=== PATIENT | male | born 1945 | race Caucasian/White ===

== ENCOUNTER → 2020-09-01 | Outpatient (CLI) | payer OTHER ==
--- NOTE | 2020-09-01 14:55 | RAD ---
EXAMINATION: NM PET/CT SKULL BASE TO MID THIGH CLINICAL HISTORY: Right lower lobe pulmonary mass TECHNIQUE: Approximately 60 minutes following the IV administration of F-18 FDG (15.97 mCi of F-18 FD G), PET and non contrast CT images were acquired from the skull base through th mid thighs. PET image s were reconstructed with and without attenuation correction using attenuation coefficients. CT image s obtained for attenuation correction and anatomic localization, they are not of diagnostic quality a nd are not intended to diagnose disease independently of the PET. - Blood Glucose: 83 mg/dL CT Dose Reduction Employed: One or more of the following individualized dose reduction techniques wer e utilized for this examination: 1. Automated exposure control 2. Adjustment of the mA and/or kV ac cording to patient size 3. Use of iterative reconstruction technique. COMPARISON: CT chest 08/23/2020 FINDINGS: NECK: No suspicious FDG avid focus or FDG avid lymphadenopathy visualized. CHEST: A 8.0 cm mass in the posterior right lower lobe demonstrates low level uptake with Max SUV 1.6. Multi ple prominent mediastinal lymph nodes, predominantly paratracheal, with mild uptake. For example, 7 m m node at station 4R demonstrating mild uptake with Max SUV 3.0 (series 603 image 59). 7 mm left alfonzo r lymph node demonstrating mild uptake with Max SUV 2.7 (series 603 image 63). Chronic changes in the chest similar to prior study. ABDOMEN/PELVIS: No FDG avid lymphadenopathy visualized. Enlarged prostate demonstrating low level uptake with Max SUV 2.1, nonspecific. Prostate densities mass effect and urinary bladder with mild diffuse bladder wall thickening, likely reactive. Right renal cyst with no associated uptake. EXTREMITIES/SKELETON: No suspicious FDG avid focus visualized. Diffuse low level uptake in the spine, nonspecific. Symmetri c uptake within strap muscles of the neck, nonspecific but likely related to increased muscle activit y following radiopharmaceutical administration. IMPRESSION: Nonspecific 8 cm pulmonary mass in the right lower lobe with low level FDG uptake, consider percutane ous biopsy for definitive diagnosis. Prominent mediastinal and left hilar lymph nodes with mild FDG uptake, nonspecific. Enlarged prostate. Electronically signed by: Simone Almendarez DO (09/01/2020 2:52 PM) [id number]
== END ==
LOC: PETSC 08:54
PROVIDERS: ATTEND Internal Medicine Pulmonary Disease
DX: R91.8 Other nonspecific abnormal finding of lung field (principal); R59.0 Localized enlarged lymph nodes; N40.0 Benign prostatic hyperplasia without lower urinary tract symptoms; N28.1 Cyst of kidney, acquired
CPT/HCPCS: 78815; A9552

== ENCOUNTER 2020-09-06 06:33 | Inpatient (IN) | payer OTHER ==
[~2020-09-06] VITALS: Ht 177.8 cm; Wt 56.4 kg
[2020-09-06] VITALS (17 sets, daily range): BP systolic 112–157; BP diastolic 54–87
[2020-09-06 07:44] LABS: BASO % 0 % (0-3); EOS # 0.4 x10^3/uL (0.0-0.7); EOS % 5 % (0-3); HEMATOCRIT 46.1 % (39.0-53.0); HEMOGLOBIN 15.4 g/dL (13.0-17.5); LYMPH # 1.5 x10^3/uL (1.0-4.8); LYMPH % 19 % (24-48); MEAN CORPUSCULAR HEMOGLOBIN 31 pg (25-35); MEAN CORPUSCULAR HGB CONC 33 g/dL (31-37); MEAN CORPUSCULAR VOLUME 92 fL (79-100); MONO # 0.6 x10^3/uL (0.0-1.1); MONO % 8 % (0-9); NEUT # 5.2 x10^3/uL (1.8-7.7); NEUT % 67 % (31-73); PLATELET COUNT 286 x10^3/uL (140-400); RED BLOOD COUNT 5.01 x10^6/uL (4.30-5.70); RED CELL DISTRIBUTION WIDTH 13.9 % (11.5-14.5); WHITE BLOOD COUNT 7.7 x10^3/uL (4.0-11.0)
[2020-09-06] MEDS ORDERED: PANT40TA77 PO (07:50)
[2020-09-06] MEDS ORDERED: FLUT1BLS3 IH (07:50)
[2020-09-06] MEDS ORDERED: ALBU2.5V8 IH (07:50)
[2020-09-06 07:53] LABS: CALCIUM 9.3 mg/dL (8.5-10.1); CREATININE 0.9 mg/dL (0.7-1.3); GFR 82.9; POTASSIUM 3.9 mmol/L (3.5-5.1)
[2020-09-06 07:54] LABS: PROTHROMBIN TIME PATIENT 12.7 SEC (11.7-14.0)
[2020-09-06] MEDS ORDERED: LIDOCAINE WITH 8.4% SOD BICARB 3 ML DISP.SYRIN. ONE (08:31)
[2020-09-06] MEDS ORDERED: fentaNYL PF VIAL 100 MCG/2 ML VIAL ONE (08:50)
[2020-09-06] MEDS ORDERED: MIDAZOLAM HCL/PF 2 MG/2 ML VIAL. ONE (08:50)
[2020-09-06] MEDS ORDERED: MIDAZOLAM HCL/PF 2 MG/2 ML VIAL. IV ONE (09:15)
[2020-09-06] MEDS ORDERED: LIDOCAINE WITH 8.4% SOD BICARB 3 ML DISP.SYRIN. IJ ONE (09:15)
[2020-09-06] MEDS ORDERED: fentaNYL PF VIAL 100 MCG/2 ML VIAL IV ONE (09:15)
--- NOTE | 2020-09-06 09:55 | PDOC ---
Provider Note Date of Service: DATE: 09/06/20 TIME: 09:52 Provider Note IR NOTE Mr Cota presented outpatient for a RLL lung mass biopsy. Unfortunately he developed a post biopsy penumothorax, and a chest tube was placed. He will need to be admitted. I will set the chest tube to continuous suction at -20 cm h20 for now. Justifications for Admission Other Justification JULIAN RITCHIE MD Sep 06, 2020 09:55
--- NOTE | 2020-09-06 10:12 | RAD ---
Procedure: CT-guided biopsy, right basilar pulmonary versus pleural mass 09/06/2020 Clinical Indication: Right pleural versus pulmonary mass. Calcified pleural plaques suggesting history of asbestos exposure. Sedation: Conscious sedation was administered for 30 minutes. The patient was monitored by a qualified independent observer throughout the time of sedation. Please refer to the medical record for exact doses of medications utilized to achieve moderate sedation. Sterility: The procedure was performed in its entirety using appropriate elements of sterile technique. Consent: The procedure was explained in its entirety to the patient or the patients designated telephone service representative by a member of the treatment team, including a discussion of the risks, benefits and commonly accepted alternatives to the procedure, as well as the expected consequences of no therapy whatsoever. Discussion of the risks included, but was not limited to, those that are most frequent and those that are rare but possibly severe or life-threatening, as well as the possibility of unforeseen complications. Technique and Findings: The patient was placed in the prone position. A timeout procedure was performed. Posterior right thorax was prepped and draped using sterile barrier technique as described. 1% lidocaine was administered for local anesthesia. A small dermatotomy was made. Under intermittent CT guidance a 17-gauge needle was advanced into the mass. Core biopsy samples were obtained. The needles were removed. There was a moderate post biopsy pneumothorax noted. Aspiration was performed with a 5 Spanish Yueh needle unfortunately of a pneumothorax reoccurred rapidly. A guidewire was advanced into the pleural space and 8 Spanish chest tube was placed. The catheter was connected to Pleur-evac device at -20 cm of water. The patient was admitted and pulmonary consultation obtained. Impression: 1. CT-guided biopsy, right basilar pulmonary versus pleural mass 2. Post biopsy pneumothorax assessing placement of small-caliber thoracostomy tube under CT guidance. PQRS Compliance Statement: One or more of the following individualized dose reduction techniques were utilized for this examination: 1. Automated exposure control 2. Adjustment of the mA and/or kV according to patient size 3. Use of iterative reconstruction technique
--- NOTE | 2020-09-06 11:35 | CONS ---
DATE OF CONSULTATION: 09/06/2020 PULMONARY CONSULTATION ATTENDING PHYSICIAN: Tayo Hunt MD REASON FOR CONSULTATION: Pneumothorax. HISTORY OF PRESENT ILLNESS: The patient is a 74-year-old male who has a history of tobacco use since age 16 and likely has severe emphysema. The patient was seen by my partner, Dr. Aquino, in the office for an abnormal CT chest. The patient had a large 8 cm right lower lobe lung mass with smooth margins. He also had an 8 mm left upper lobe nodule. He had evidence of emphysema in the upper lobes. The patient had a PET scan, which did not show any hypermetabolic activity in the right lower lobe mass. He was sent for biopsy. Post-biopsy, he had a pneumothorax and required a chest tube. There is no obvious air leak. Chest x-ray post-chest tube is pending. PAST MEDICAL HISTORY: Suspect severe COPD. Otherwise, no other chronic medical history. SOCIAL HISTORY: Smoked since age 16. He still smokes cigarettes 1 pack a day. 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 FAMILY HISTORY: Noncontributory to lungs. REVIEW OF SYSTEMS: A 12-point system obtained. Pertinent positives discussed in my present illness, otherwise noncontributory. All systems that were negative were reviewed as well. MEDICATIONS: Reviewed as listed in the MRAD. PHYSICAL EXAMINATION: VITAL SIGNS: Reviewed. Pulse ox 94% on 2 liters. NECK: Supple. LUNGS: With diminished breath sounds bilaterally. CARDIOVASCULAR: With a regular rate. ABDOMEN: Soft. EXTREMITIES: With no pitting edema. LABORATORY DATA: Labs are reviewed. INR 1.0. White cell count 7.7, hemoglobin 15.4, platelets 286. IMPRESSION: 1. The patient with large 8 cm smooth mass in the right lower lobe and a small 8 mm left upper lobe nodule. PET scan was negative. He did have 15-pound weight loss over the past year and a half. It could be malignant; however, the possibility of lesion such as a neuroma or Hamartoma would also be a consideration. 2. Pneumothorax, status post biopsy. Currently, he has a chest tube. No air leak seen. 3. Underlying suspected severe chronic obstructive pulmonary disease with upper lobe emphysema on the CT chest. RECOMMENDATIONS: 1. We will continue to monitor chest x-ray and air leak. 2. Add bronchodilators. 3. Await final biopsy report. 4. The patient to follow up with Dr. Aquino in the office post discharge. TARUN DR: Aleshia TID: [id number] MTDBrittney
--- NOTE | 2020-09-06 14:16 | PDOC1 ---
History and Physical Date of Admission Date of Admission DATE: 09/06/20 TIME: 14:06 Identification/Chief Complaint Chief Complaint Pneumothorax Source Source: Patient History of Present Illness History of Present Illness Patient 74-year-old male with past medical history emphysema, tobacco abuse, who presents from outpatient clinic due to pneumothorax. He presented for CT-guided biopsy of right lung mass and developed post biopsy pneumothorax. Chest tube was inserted and placed on continuous suction. At the time of my evaluation he currently denies some right rib pain secondary to biopsy, but denies any shortness of breath and breathing comfortably on room air. Admit patient for further medical management. Past Medical History Pulmonary: COPD Past Surgical History Past Surgical History: No pertinent history Family History Family History: Cancer Social History Smoke: 1 pack per day ALCOHOL: other (Former alcohol) Drugs: None Current Medications Current Medications Current Medications Lidocaine HCl (Buffered Lidocaine 1%) 3 ml STK-MED ONCE .ROUTE ; Start 09/06/20 at 08:31; Stop 09/06/20 at 08:31; Status DC Midazolam HCl (Versed) 2 mg STK-MED ONCE .ROUTE ; Start 09/06/20 at 08:50; Stop 09/06/20 at 08:51; Status DC Fentanyl Citrate (Fentanyl 2ml Vial) 100 mcg STK-MED ONCE .ROUTE ; Start 09/06/20 at 08:50; Stop 09/06/20 at 08:51; Status DC Lidocaine HCl (Buffered Lidocaine 1%) 6 ml 1X ONCE IJ Last administered on 09/06/20at 09:38; Start 09/06/20 at 09:15; Stop 09/06/20 at 09:18; Status DC Midazolam HCl (Versed) 1 mg 1X ONCE IV Last administered on 09/06/20at 09:38; Start 09/06/20 at 09:15; Stop 09/06/20 at 09:18; Status DC Fentanyl Citrate (Fentanyl 2ml Vial) 50 mcg 1X ONCE IV Last administered on 09/06/20at 09:39; Start 09/06/20 at 09:15; Stop 09/06/20 at 09:18; Status DC Active Scripts Active Reported Pantoprazole Sodium (Pantoprazole Sodium) 40 Mg Tablet.dr 40 Mg PO DAILYAC Trelegy Ellipta 100-62.5-25 (Fluticasone/Umeclidin/Vilanter) 1 Each Blst.w.dev 1 Each IH BID Proair Hfa Inhaler (Albuterol Sulfate) 8.5 Gm Hfa.aer.ad 2 Puff IH PRN Q4-6HRS PRN 21 Days Allergies Allergies: Coded Allergies: No Known Drug Allergies (Unverified , 09/06/20) ROS Review of System GENERAL: No history of weight change, weakness or fevers. SKIN: No bruising, hair changes or rashes. EYES: No blurred, double or loss of vision. NOSE AND THROAT: No history of nosebleeds, hoarseness or sore throat. HEART: Denies chest pain, denies palpitations. LUNGS: Right chest wall pain. Denies cough, hemoptysis, wheezing or shortness of breath. GASTROINTESTINAL: Denies nausea, vomiting, abdominal pain. GENITOURINARY: Denies dysuria, frequency, urgency, hematuria. NEUROLOGIC: Denies history of numbness, tingling, tremor or weakness. PSYCHIATRIC: Denies anxiety, denies depression. ENDOCRINE: No history of heat or cold intolerance, polyuria or polydipsia. EXTREMITIES: Denies muscle weakness, joint pain, pain on walking or stiffness. Physical Exam Physical Exam General: Alert, Oriented X3, Cooperative, No acute distress HEENT: PERRLA, EOMI Lungs: Clear to auscultation, Normal air movement. Right posterior chest tube in place. Heart: RRR, no murmurs Cardiovascular: S1, S2 Abdomen: Normal bowel sounds, Soft, No tenderness Extremities: No clubbing, No cyanosis Skin: No rashes, No significant lesion Neuro: Normal speech, Normal tone, Sensation intact Psych/Mental Status: Mental status NL, Mood NL Vitals Vitals Vital Signs Date Time Temp Pulse Resp B/P (MAP) Pulse Ox O2 Delivery O2 Flow Rate FiO2 09/06/20 11:43 Nasal Cannula 2.0 09/06/20 10:28 88 16 94 09/06/20 07:41 98.2 139/67 (91) 98.2 Labs Labs Laboratory Tests Test 09/06/20 07:32 White Blood Count 7.7 x10^3/uL (4.0-11.0) Red Blood Count 5.01 x10^6/uL (4.30-5.70) Hemoglobin 15.4 g/dL (13.0-17.5) Hematocrit 46.1 % (39.0-53.0) Mean Corpuscular Volume 92 fL (79-100) Mean Corpuscular Hemoglobin 31 pg (25-35) Mean Corpuscular Hemoglobin Concent 33 g/dL (31-37) Red Cell Distribution Width 13.9 % (11.5-14.5) Platelet Count 286 x10^3/uL (140-400) Neutrophils (%) (Auto) 67 % (31-73) Lymphocytes (%) (Auto) 19 % (24-48) Monocytes (%) (Auto) 8 % (0-9) Eosinophils (%) (Auto) 5 % (0-3) Basophils (%) (Auto) 0 % (0-3) Neutrophils # (Auto) 5.2 x10^3/uL (1.8-7.7) Lymphocytes # (Auto) 1.5 x10^3/uL (1.0-4.8) Monocytes # (Auto) 0.6 x10^3/uL (0.0-1.1) Eosinophils # (Auto) 0.4 x10^3/uL (0.0-0.7) Basophils # (Auto) 0.0 x10^3/uL (0.0-0.2) Prothrombin Time 12.7 SEC (11.7-14.0) Prothromb Time International Ratio 1.0 (0.8-1.1) Sodium Level 135 mmol/L (136-145) Potassium Level 3.9 mmol/L (3.5-5.1) Chloride Level 96 mmol/L (98-107) Carbon Dioxide Level 35 mmol/L (21-32) Anion Gap 4 (6-14) Blood Urea Nitrogen 8 mg/dL (8-26) Creatinine 0.9 mg/dL (0.7-1.3) Estimated GFR (Cockcroft-Gault) 82.9 Glucose Level 87 mg/dL (70-99) Calcium Level 9.3 mg/dL (8.5-10.1) Laboratory Tests Test 09/06/20 07:32 White Blood Count 7.7 x10^3/uL (4.0-11.0) Red Blood Count 5.01 x10^6/uL (4.30-5.70) Hemoglobin 15.4 g/dL (13.0-17.5) Hematocrit 46.1 % (39.0-53.0) Mean Corpuscular Volume 92 fL (79-100) Mean Corpuscular Hemoglobin 31 pg (25-35) Mean Corpuscular Hemoglobin Concent 33 g/dL (31-37) Red Cell Distribution Width 13.9 % (11.5-14.5) Platelet Count 286 x10^3/uL (140-400) Neutrophils (%) (Auto) 67 % (31-73) Lymphocytes (%) (Auto) 19 % (24-48) Monocytes (%) (Auto) 8 % (0-9) Eosinophils (%) (Auto) 5 % (0-3) Basophils (%) (Auto) 0 % (0-3) Neutrophils # (Auto) 5.2 x10^3/uL (1.8-7.7) Lymphocytes # (Auto) 1.5 x10^3/uL (1.0-4.8) Monocytes # (Auto) 0.6 x10^3/uL (0.0-1.1) Eosinophils # (Auto) 0.4 x10^3/uL (0.0-0.7) Basophils # (Auto) 0.0 x10^3/uL (0.0-0.2) Prothrombin Time 12.7 SEC (11.7-14.0) Prothromb Time International Ratio 1.0 (0.8-1.1) Sodium Level 135 mmol/L (136-145) Potassium Level 3.9 mmol/L (3.5-5.1) Chloride Level 96 mmol/L (98-107) Carbon Dioxide Level 35 mmol/L (21-32) Anion Gap 4 (6-14) Blood Urea Nitrogen 8 mg/dL (8-26) Creatinine 0.9 mg/dL (0.7-1.3) Estimated GFR (Cockcroft-Gault) 82.9 Glucose Level 87 mg/dL (70-99) Calcium Level 9.3 mg/dL (8.5-10.1) Images Images PATIENT: KATYA COTA ACCOUNT: [id number] : 1945 LOCATION: [address] [place] [address] AGE: 74 SEX: M EXAM STATUS: ADM IN ORD. PHYSICIAN: YAN FRIEDMAN MD REASON: RIGHT LUNG MASS PROCEDURE: [id number] BIOPSY LUNG/MEDIASTINUM Procedure: CT-guided biopsy, right basilar pulmonary versus pleural mass 09/06/2020 Clinical Indication: Right pleural versus pulmonary mass. Calcified pleural plaques suggesting history of asbestos exposure. Sedation: Conscious sedation was administered for 30 minutes. The patient was monitored by a qualified independent observer throughout the time of sedation. Please refer to the medical record for exact doses of medications utilized to achieve moderate sedation. Sterility: The procedure was performed in its entirety using appropriate elements of sterile technique. Consent: The procedure was explained in its entirety to the patient or the patients designated disability representative by a member of the treatment team, including a discussion of the risks, benefits and commonly accepted alternatives to the procedure, as well as the expected consequences of no therapy whatsoever. Discussion of the risks included, but was not limited to, those that are most frequent and those that are rare but possibly severe or life-threatening, as well as the possibility of unforeseen complications. Technique and Findings: The patient was placed in the prone position. A timeout procedure was performed. Posterior right thorax was prepped and draped using sterile barrier technique as described. 1% lidocaine was administered for local anesthesia. A small dermatotomy was made. Under intermittent CT guidance a 17-gauge needle was advanced into the mass. Core biopsy samples were obtained. The needles were removed. There was a moderate post biopsy pneumothorax noted. Aspiration was performed with a 5 [place] Yueh needle unfortunately of a pneumothorax reoccurred rapidly. A guidewire was advanced into the pleural space and 8 [place]ese chest tube was placed. The catheter was connected to Pleur-evac device at -20 cm of water. The patient was admitted and pulmonary consultation obtained. Impression: 1. CT-guided biopsy, right basilar pulmonary versus pleural mass 2. Post biopsy pneumothorax assessing placement of small-caliber thoracostomy tube under CT guidance. VTE Prophylaxis Ordered VTE Prophylaxis Devices: Yes VTE Pharmacological Prophylaxi: No Assessment/Plan Assessment/Plan Pneumothorax COPD/emphysema Plan: Continue chest tube to suction Consultation placed to pulmonology Serial chest x-rays DuoNebs as needed Await biopsy results FEN - Cardiac diet PPX - Lovenox FULL CODE Dispo - inpatient for above Advance Care Planning: Total time spent [id number] with patient 16 minutes in discussion with goals of care, comfort care, end-of-life care, pain management, code status; patient names his sister (Laila Cota) as surrogate decision- maker. Justifications for Admission Other Justification ISAURA SMITH MD Sep 06, 2020 14:16
[2020-09-06] MEDS: ENOXAPARIN 40 MG/0.4 ML SYRINGE. SQ SCH (14:24)
[2020-09-06] MEDS ORDERED: MAG HYDROX/ALUMINUM HYD/SIMETH 30 ML ORAL.SUSP PO PRN (14:30)
[2020-09-06] MEDS ORDERED: ZOLPIDEM 5 MG TABLET. PO PRN (14:30)
[2020-09-06] MEDS ORDERED: ACETAMINOPHEN 325 MG TABLET. PO PRN (14:30)
[2020-09-06] MEDS ORDERED: MAGNESIUM HYDROXIDE 2,400 MG/30 ML ORAL.SUSP. PO PRN (14:30)
[2020-09-06] MEDS ORDERED: ONDANSETRON PF 4 MG/2 ML VIAL. IVP PRN (14:30)
[2020-09-06] MEDS ORDERED: CALCIUM CARBONATE 500 MG TAB.CHEW PO PRN (14:30)
[2020-09-06] MEDS ORDERED: HYDROcodone/APAP 5/325MG 1 TAB TABLET PO PRN (14:30)
[2020-09-06] MEDS: HYDROcodone/APAP 5/325MG 1 TAB TABLET PO PRN ×2 (14:34→20:53)
[2020-09-06] MEDS: ALBUTEROL SULFATE 2.5 MG/3 ML NEBU. NEB PRN ×2 (16:47→20:19)
[2020-09-07 03:00] VITALS: BP 131/60
[2020-09-07] MEDS: HYDROcodone/APAP 5/325MG 1 TAB TABLET PO PRN ×3 (05:40→21:12)
[2020-09-07 07:00] VITALS: BP 123/55
--- NOTE | 2020-09-07 07:41 | PDOC ---
[facility] PROGRESS NOTE Date of Service DOS: DATE: 09/07/20 TIME: 07:34 Chief Complaint Chief Complaint A/P: Right pneumothorax - no obvious air leak. Repeat CXR pending Right lower lobe lung mass - large 8 cm right lower lobe lung mass with smooth margins and 8 mm left upper lobe nodule COPD - Emphysematous on trelegy inhaler at home. Will replace with duonebs and pulmicort nebs GERD - on PPI Unintentional weight loss - 15-pound weight loss over the past year and a half. Could be COPD cachexia, though malignancy is a possible concern as well. FEN - general diet PPX - lovenox FULL CODE Dispo - inpatient History of Present Illness History of Present Illness Mr Cota is a 74-year-old male [employer] with PMHx emphysema/COPD with 50+ pack year smoking history admitted on 09/06/2020 for management after biopsy of 8cm right lung mass with subsequent pneumothorax requiring chest tube placement. Afebrile. No airleak. Chest radiograph looks improved. He is asking for nicotine patch. Tolerating nebulizers well. Pain is minimal. Vitals/I&O Vitals/I&O: Vital Signs Date Time Temp Pulse Resp B/P (MAP) Pulse Ox O2 Delivery O2 Flow Rate FiO2 09/07/20 06:10 20 Nasal Cannula 2.0 09/07/20 03:00 98.0 73 131/60 (83) 93 98.0 I & O 09/06/20 09/06/20 09/07/20 15:00 23:00 07:00 Intake Total 140 ml 260 ml 200 ml Output Total 880 ml Balance 140 ml 260 ml -680 ml Physical Exam General: Alert, Oriented X3, Cooperative Heart: Regular rate, Normal S1, Normal S2 Lungs: Clear Abdomen: Normal bowel sounds, Soft Extremities: No clubbing, No cyanosis Skin: No rashes, No breakdown Comment Review of Relevant I have reviewed the following items pat (where applicable) has been applied. Medications: Current Medications Medications (Trade) Dose Ordered Sig/Lopez Route PRN Reason Start Time Stop Time Status Last Admin Dose Admin Lidocaine HCl (Buffered Lidocaine 1%) 6 ml 1X ONCE IJ 09/06/20 09:15 09/06/20 09:18 DC 09/06/20 09:38 Midazolam HCl (Versed) 1 mg 1X ONCE IV 09/06/20 09:15 09/06/20 09:18 DC 09/06/20 09:38 Fentanyl Citrate (Fentanyl 2ml Vial) 50 mcg 1X ONCE IV 09/06/20 09:15 09/06/20 09:18 DC 09/06/20 09:39 Acetaminophen/ Hydrocodone Bitart (Lortab 5/325) 1 tab PRN Q4HRS PRN PO MILD PAIN 1-3 09/06/20 14:30 09/07/20 05:40 Albuterol Sulfate (Ventolin Neb Soln) 2.5 mg RTQID PRN NEB SHORTNESS OF BREATH 09/06/20 14:30 09/06/20 20:19 Justifications for Admission Other Justification TIMBO FRY MD Sep 07, 2020 07:41
[2020-09-07] MEDS: BUDESONIDE 0.5 MG/2 ML NEBU. NEB SCH ×3 (08:00→18:25)
--- NOTE | 2020-09-07 08:52 | RAD ---
XR CHEST 1V History: Reason: PTX / Spl. Instructions: / History: Comparison: CT-guided biopsy September 06, 2020. PET/CT September 01, 2020. Findings: Right basilar pigtail pleural catheter. Decreased right pneumothorax compared to prior CT. Right lowe r lobe pulmonary mass, unchanged. Hyperinflation with emphysematous changes. Prior granulomatous dise ase within the chest. Calcified pleural plaque, may relate to prior asbestos exposure. Normal heart s ize. No pleural effusion. Impression: 1. Decreased right pneumothorax compared to CT biopsy. Stable right pigtail pleural catheter. 2. Unchanged right lower lobe mass. Electronically signed by: Desmond Bean DO (09/07/2020 8:49 AM) [id number]
--- NOTE | 2020-09-07 09:11 | PDOC ---
PULMONARY PROGRESS NOTES DATE: 09/07/20 TIME: 09:10 Subjective no soa Vitals Vital Signs Date Time Temp Pulse Resp B/P (MAP) Pulse Ox O2 Delivery O2 Flow Rate FiO2 09/07/20 07:00 97.7 70 18 123/55 (77) 95 Nasal Cannula 2.0 97.7 General: Alert, No acute distress Lungs: Clear Cardiovascular: S1 Abdomen: Soft Neuro Exam: Alert Extremities: No Edema Skin: Warm Labs Laboratory Tests Test 09/06/20 07:32 White Blood Count 7.7 x10^3/uL (4.0-11.0) Red Blood Count 5.01 x10^6/uL (4.30-5.70) Hemoglobin 15.4 g/dL (13.0-17.5) Hematocrit 46.1 % (39.0-53.0) Mean Corpuscular Volume 92 fL (79-100) Mean Corpuscular Hemoglobin 31 pg (25-35) Mean Corpuscular Hemoglobin Concent 33 g/dL (31-37) Red Cell Distribution Width 13.9 % (11.5-14.5) Platelet Count 286 x10^3/uL (140-400) Neutrophils (%) (Auto) 67 % (31-73) Lymphocytes (%) (Auto) 19 % (24-48) Monocytes (%) (Auto) 8 % (0-9) Eosinophils (%) (Auto) 5 % (0-3) Basophils (%) (Auto) 0 % (0-3) Neutrophils # (Auto) 5.2 x10^3/uL (1.8-7.7) Lymphocytes # (Auto) 1.5 x10^3/uL (1.0-4.8) Monocytes # (Auto) 0.6 x10^3/uL (0.0-1.1) Eosinophils # (Auto) 0.4 x10^3/uL (0.0-0.7) Basophils # (Auto) 0.0 x10^3/uL (0.0-0.2) Prothrombin Time 12.7 SEC (11.7-14.0) Prothromb Time International Ratio 1.0 (0.8-1.1) Sodium Level 135 mmol/L (136-145) Potassium Level 3.9 mmol/L (3.5-5.1) Chloride Level 96 mmol/L (98-107) Carbon Dioxide Level 35 mmol/L (21-32) Anion Gap 4 (6-14) Blood Urea Nitrogen 8 mg/dL (8-26) Creatinine 0.9 mg/dL (0.7-1.3) Estimated GFR (Cockcroft-Gault) 82.9 Glucose Level 87 mg/dL (70-99) Calcium Level 9.3 mg/dL (8.5-10.1) Medications Active Scripts Medications Dose Route/Sig Max Daily Dose Days Date Category Pantoprazole Sodium (Pantoprazole Sodium) 40 Mg Tablet. 40 Mg PO DAILYAC 09/06/20 Reported Trelegy Ellipta 100-62.5-25 (Fluticasone/Umeclidin/Vilanter) 1 Each Blst.w.dev 1 Each IH BID 09/06/20 Reported Proair Hfa Inhaler (Albuterol Sulfate) 8.5 Gm Hfa.aer.ad 2 Puff IH PRN Q4-6HRS PRN 21 09/06/20 Reported Impression . 1. The patient with large 8 cm smooth mass in the right lower lobe and a small 8 mm left upper lobe nodule. PET scan was negative. He did have 15-pound weight loss over the past year and a half. It could be malignant; however, the possibility of lesion such as a neuroma or Hamartoma would also be a consideration. 2. Pneumothorax, status post biopsy. Currently, he has a chest tube. No air leak seen. 3. Underlying suspected severe chronic obstructive pulmonary disease with upper lobe emphysema on the CT chest. Plan . RECOMMENDATIONS: 1. We will continue to monitor chest x-ray and air leak. cxr 09/07 improving PTX, no air leak 2. bronchodilators. 3. Await final biopsy report. 4. The patient to follow up with Dr. Aquino in the office post discharge. BINU BARRETO MD Sep 07, 2020 09:11
[2020-09-07] MEDS: PANTOPRAZOLE 40 MG TABLET.DR. PO SCH (09:18)
--- NOTE | 2020-09-07 10:48 | NUR ---
SW following. Discussed with RN, pt from home with family, 2L (does not use at home), regular diet. Pulmonology following, pt has a chest tube. RN advised no SW needs at this time. SW will continue to follow.
[2020-09-07 11:00] VITALS: BP 128/67
[2020-09-07] MEDS: IPRATRPIUM/ALBUTEROL 0.5/2.5MG 3 ML NEBU. NEB SCH ×3 (12:32→18:25)
[2020-09-07] MEDS ORDERED: NICOTINE POLACRILEX 2MG GUM PACKAGE of 12. BC PRN (13:30)
[2020-09-07] MEDS: NICOTINE 21MG PATCH. TD SCH (13:37)
[2020-09-07] MEDS: ENOXAPARIN 40 MG/0.4 ML SYRINGE. SQ SCH ×2 (14:53→17:44)
[2020-09-07 15:00] VITALS: BP 128/54
[2020-09-07 19:00] VITALS: BP 132/57
[2020-09-07 23:00] VITALS: BP 139/69
[2020-09-08 03:00] VITALS: BP 125/60
[2020-09-08] MEDS: PANTOPRAZOLE 40 MG TABLET.DR. PO SCH (05:55)
[2020-09-08 07:00] VITALS: BP 133/60
[2020-09-08] MEDS: IPRATRPIUM/ALBUTEROL 0.5/2.5MG 3 ML NEBU. NEB SCH ×4 (07:52→20:13)
[2020-09-08] MEDS: BUDESONIDE 0.5 MG/2 ML NEBU. NEB SCH ×2 (07:52→20:13)
--- NOTE | 2020-09-08 08:15 | NUR ---
Pt. found in room, sitting on edge of bed calling out for help. Upon entering pt states he cannot breathe and thinks he was having a reaction to recent RT tx. Pt. denies pain, CT site CDI to -20cm suction. Pt. sating 87% on 2L NC. O2 inc to 5L, pt sating 90-94% on 5L and states he is feeling better. Dr. uHnt on the unit and notified of current pt status. Addendum: 09/08/20 at 1017 by VANDANA JIMENEZ RN BP 158/68, HR 79
--- NOTE | 2020-09-08 08:45 | NUR ---
Pt's O2 dec to 2L NC, sating 92%, states he is feeling much better. Dr. Hunt at bedside.
[2020-09-08] MEDS: NICOTINE 21MG PATCH. TD SCH (09:00)
--- NOTE | 2020-09-08 10:23 | PDOC ---
[facility] PROGRESS NOTE Date of Service DOS: DATE: 09/08/20 TIME: 10:20 Chief Complaint Chief Complaint A/P: Acute hypoxic respiratory failure - due to PTX, COPD exacerbation. Pulm following Right pneumothorax - no obvious air leak. Repeat CXR pending Right lower lobe lung mass - large 8 cm right lower lobe lung mass with smooth margins and 8 mm left upper lobe nodule COPD - Emphysematous on trelegy inhaler at home. Will replace with duonebs and pulmicort nebs GERD - on PPI Unintentional weight loss - 15-pound weight loss over the past year and a half. Could be COPD cachexia, though malignancy is a possible concern as well. FEN - general diet PPX - lovenox FULL CODE Dispo - inpatient History of Present Illness History of Present Illness Mr Cota is a 74-year-old male [employer] with PMHx emphysema/COPD with 50+ pack year smoking history admitted on 09/06/2020 for management after biopsy of 8 cm right lung mass with subsequent pneumothorax requiring chest tube placement. 09/07: Afebrile. No airleak. Chest radiograph looks improved. He is asking for nicotine patch. Tolerating nebulizers well. Pain is minimal. Afebrile. No airleak. In the visit after his nebulizer treatment this morning 10 minutes afterwards. He said it tasted differently felt his heart racing and could not catch his breath. This is since resolved. He is an additional 70cc serous drainage from chest tube. Pain is well controlled. Awaiting chest x- ray. Significant O2 desaturations over the last 24 hours required between 2 L nasal cannula to get over 84%. Vitals/I&O Vitals/I&O: Vital Signs Date Time Temp Pulse Resp B/P (MAP) Pulse Ox O2 Delivery O2 Flow Rate FiO2 09/08/20 07:54 95 Nasal Cannula 2.0 09/08/20 07:00 97.7 68 18 133/60 (84) 97.7 I & O 09/07/20 09/07/20 09/08/20 15:00 23:00 07:00 Intake Total 560 ml 200 ml 240 ml Output Total 390 ml 725 ml 250 ml Balance 170 ml -525 ml -10 ml Physical Exam General: Alert, Oriented X3, Cooperative Heart: Regular rate, Normal S1, Normal S2 Lungs: Clear Abdomen: Normal bowel sounds, Soft Extremities: No clubbing, No cyanosis Skin: No rashes, No breakdown Comment Review of Relevant I have reviewed the following items pat (where applicable) has been applied. Medications: Current Medications Medications (Trade) Dose Ordered Sig/Lopez Route PRN Reason Start Time Stop Time Status Last Admin Dose Admin Nicotine (Nicoderm Cq 21mg) 1 patch DAILY TD 09/07/20 12:11 09/07/20 13:37 Justifications for Admission Other Justification TIMBO FRY MD Sep 08, 2020 10:23
[2020-09-08 11:00] VITALS: BP 130/65
--- NOTE | 2020-09-08 12:41 | PDOC ---
PULMONARY PROGRESS NOTES DATE: 09/08/20 TIME: 12:40 Subjective no soa Vitals Vital Signs Date Time Temp Pulse Resp B/P (MAP) Pulse Ox O2 Delivery O2 Flow Rate FiO2 09/08/20 11:36 96 Nasal Cannula 2.0 09/08/20 11:00 98.1 68 18 130/65 (86) 98.1 General: Alert, No acute distress Lungs: Clear Cardiovascular: S1 Abdomen: Soft Neuro Exam: Alert Extremities: No Edema Skin: Warm Medications Active Scripts Medications Dose Route/Sig Max Daily Dose Days Date Category Pantoprazole Sodium (Pantoprazole Sodium) 40 Mg Tablet.dr 40 Mg PO DAILYAC 09/06/20 Reported Trelegy Ellipta 100-62.5-25 (Fluticasone/Umeclidin/Vilanter) 1 Each Blst.w.dev 1 Each IH BID 09/06/20 Reported Proair Hfa Inhaler (Albuterol Sulfate) 8.5 Gm Hfa.aer.ad 2 Puff IH PRN Q4-6HRS PRN 21 09/06/20 Reported Impression . 1. The patient with large 8 cm smooth mass in the right lower lobe and a small 8 mm left upper lobe nodule. PET scan was negative. He did have 15-pound weight loss over the past year and a half. It could be malignant; however, the possibility of lesion such as a neuroma or Hamartoma would also be a consideration. 2. Pneumothorax, status post biopsy. Currently, he has a chest tube. No air leak seen. 3. Underlying suspected severe chronic obstructive pulmonary disease with upper lobe emphysema on the CT chest. Plan . RECOMMENDATIONS: 1. I reviewed patient's chest x-ray. 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 I would proceed with a CT chest noncontrast to better rule out pneumothorax. 2. bronchodilators. 3. Preliminary biopsy results discussed with the pathologist. 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 4. The patient to follow up with Dr. Aquino in the office post discharge. BINU BARRETO MD Sep 08, 2020 12:41
--- NOTE | 2020-09-08 13:13 | PATHOLOGY ---
[facility] Accession Number: [id number] . 01 Material submitted: . lung - RIGHT LUNG MASS CORE BIOPSY. Modifiers: right . 01 Clinical history: . RIGHT LUNG MASS . 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 - See comment. . (JPM:pit; 09/07/2020) [facility] 09/08/2020 0929 Local . 02 Comment: Sections of the right lung mass CT guided needle biopsy show replacement of lung parenchyma by a patternless spindle cell proliferation having a richly collagenized stroma. The tumor has a low cellularity, and is composed of bland appearing, rounded and spindle shaped cells interspersed in between thick ropey bundles of collagen. The spindle cell nuclei display both rounded and tapered ends. There is no entrapped bronchial epithelium or lung parenchyma. There is no significant nuclear atypia or mitotic activity. There are no areas of necrosis. A panel of immunoperoxidase stains is obtained on A1 and yields the following results: . CD34: Tumor cells positive Smooth muscle actin: Blood vessels and occasional tumor cells positive S100: Tumor cells negative BCL2: Tumor cells positive Beta catenin: Absent nuclear staining within tumor cells Desmin: Tumor cells negative AE1/AE3: Tumor cells negative . 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 There is no evidence of malignancy. The case is also examined by Dr. Snell, who concurs with the diagnosis. The results are reported to Dr. Solis on 09/08/20 at 11:00 AM. . (JPM:jose guadalupe; 09/07/2020) . Special stains performed: Immunoperoxidase stains for CD34, smooth muscle actin, desmin, S100, beta catenin, BCL2, AE1/AE3 . 02 Electronically signed: . Wesly Sheets MD, Pathologist NPI- [id number] . 01 Gross description: . Received in formalin labeled "Wesly Cota and right lung mass core biopsy". Received are 2 lung core biopsies ranging from 1.0-1.6 cm in length and 0.1 cm in diameter. The specimen is entirely submitted in cassette A1.(J; 09/06/2020) . J/[facility] 09/06/2020 1609 Local . 02 Pathologist provided ICD-10: J98.4, R91.8 . 02 CPT . 300180, N00853, [id number] Specimen Comment: A courtesy copy of this report has been sent to [phone] Specimen Comment: Report sent to Performed at: 01 [facility] [address], [place] [id number] MD Franki Taveras MD Phone: [phone] Performed at: 02 [facility] [address] [place], [place] [id number] MD Wesly Sheets MD Phone: [phone]
--- NOTE | 2020-09-08 13:26 | RAD ---
EXAM: XR CHEST 1V 09/08/2020 9:53 AM CLINICAL INDICATION: Pneumothorax COMPARISON: Chest radiograph 08/08/2020 TECHNIQUE: AP upright view the chest FINDINGS: The right pigtail pleural catheter has been removed. The heart and mediastinum are normal. Lungs are hyperexpanded with emphysematous changes in the apices. There are unchanged calcified pleu ral plaques. A large pleural based mass at the right lung base is redemonstrated. There is no definit e pneumothorax or pleural effusion. IMPRESSION: Interval removal of right pigtail pleural catheter. No definite pneumothorax. Unchanged large mass at the right lung base. Electronically signed by: Aminata Morris MD (09/08/2020 1:24 PM) [id number]
[2020-09-08 15:00] VITALS: BP 134/62
[2020-09-08] MEDS: ENOXAPARIN 40 MG/0.4 ML SYRINGE. SQ SCH (16:50)
--- NOTE | 2020-09-08 17:40 | RAD ---
EXAM: CT Chest without IV contrast CLINICAL HISTORY: Reason: bullous emphysema vs PTX / Spl. Instructions: / History: COMPARISON: Chest radiograph 09/08/2020, 09/07/[address] 09/01/2020 CT chest 08/23/2020. TECHNIQUE: CT of the chest without intravenous contrast. Axial, coronal and sagittal reformatted imag es were generated. ---PQRS compliance statement - One or more of the following individualized dose reduction techniques were utilized for this study: 1. Automated exposure control 2. Adjustment of the mA and/or kV according to patient size 3. Use of iterative reconstruction technique--- FINDINGS: Lack of intravenous contrast limits evaluation of solid organs, vasculature, and lymph nodes. Chest: No axillary lymphadenopathy. Prominent mediastinal and hilar lymph nodes are seen. AP window lymph no de measures 1.6 x 0.9 cm, likely stable accounting for differences in projection/technique. Heart is not enlarged. No pericardial effusion. Aortic calcifications are seen. Mild ectasia of the a scending aorta. Prominence of pulmonary infiltrate is seen with pulmonary arterial hypertension. Left apical nodule measuring approximately 8 mm stable. No pleural effusion or pneumothorax. Marked emphysematous changes are seen. 8 cm mass is stable in the right lower lobe posteriorly. Adjac ent pigtail catheter is seen. 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 Visualized Upper abdomen: Upper abdomen is grossly stable including right renal cyst. Aortic calcific ations are again seen. Bones: Osseous structures are grossly stable. IMPRESSION: 8 cm mass right lower lobe is grossly stable. No pneumothorax. Marked emphysematous changes are again seen. Stable 8mm left apical mass. Calcified pleural plaques may be seen with asbestos exposure Electronically signed by: Tim Daley MD (09/08/2020 5:37 PM) [id number]
[2020-09-08 19:00] VITALS: BP 121/50
[2020-09-08 23:00] VITALS: BP 141/66
[2020-09-09 03:00] VITALS: BP 148/63
[2020-09-09] MEDS: PANTOPRAZOLE 40 MG TABLET.DR. PO SCH (05:45)
[2020-09-09 07:00] VITALS: BP 136/65
[2020-09-09] MEDS: IPRATRPIUM/ALBUTEROL 0.5/2.5MG 3 ML NEBU. NEB SCH ×2 (07:26→11:30)
[2020-09-09] MEDS: BUDESONIDE 0.5 MG/2 ML NEBU. NEB SCH (07:26)
--- NOTE | 2020-09-09 07:45 | RAD ---
XR CHEST 1V History: Reason: PTX 412 / Spl. Instructions: / History: Comparison: September 08, 2020 Findings: Stable right basilar pigtail pleural catheter. No definite pneumothorax. Calcified pleural plaque, ma in relate to prior asbestos exposure. Right lower lobe mass, unchanged. Hyperinflation with emphysema tous changes. Unchanged heart size. No pleural effusion. Impression: 1. Stable right basilar pigtail pleural catheter. No definite pneumothorax. 2. Unchanged right lower lobe mass. Electronically signed by: Desmond Bean DO (09/09/2020 7:43 AM) [id number]
--- NOTE | 2020-09-09 08:03 | PDOC ---
[facility] PROGRESS NOTE Date of Service DOS: DATE: 09/09/20 TIME: 08:01 Chief Complaint Chief Complaint A/P: Acute hypoxic respiratory failure - due to PTX, COPD exacerbation. Pulm following Right pneumothorax - no obvious air leak. Repeat CXR pending Right lower lobe lung mass - large 8 cm right lower lobe lung mass with smooth margins and 8 mm left upper lobe nodule COPD - Emphysematous on trelegy inhaler at home. Will replace with duonebs and pulmicort nebs GERD - on PPI Unintentional weight loss - 15-pound weight loss over the past year and a half. Could be COPD cachexia, though malignancy is a possible concern as well. FEN - general diet PPX - lovenox FULL CODE Dispo - inpatient History of Present Illness History of Present Illness Mr Cota is a 74-year-old male [employer] with PMHx emphysema/COPD with 50+ pack year smoking history admitted on 09/06/2020 for management after biopsy of 8 cm right lung mass with subsequent pneumothorax requiring chest tube placement. 09/07: Afebrile. No airleak. Chest radiograph looks improved. He is asking for nicotine patch. Tolerating nebulizers well. Pain is minimal. 09/08: Afebrile. No airleak. In the visit after his nebulizer treatment this morning 10 minutes afterwards. He said it tasted differently felt his heart racing and could not catch his breath. This is since resolved. He is an additional 70cc serous drainage from chest tube. Pain is well controlled. Awaiting chest x-ray. Significant O2 desaturations over the last 24 hours required between 2 L nasal cannula to get over 84%. CT chest with 8 cm right lower lobe mass stable no residual pneumothorax, emphysema severe left apical 8 mm mass stable and calcified pleural plaques noted. Afebrile. Chest tube pulled performed today. When walking in the room with him his O2 saturations remain 94% at 96%. He is feeling much better after nebulizer treatment. He is asked for prescription for home nebulizer kit and albuterol nebulizer for emergencies. Pain is well controlled he like to control it at home with Tylenol. He will follow up with pulmonology post discharge Plan: Preliminary biopsy results discussed with the pathologist. 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 The patient to follow up with Dr. Aquino in the office post discharge. Okay with discharge today. Discussed with Dr. Fry Vitals/I&O Vitals/I&O: Vital Signs Date Time Temp Pulse Resp B/P (MAP) Pulse Ox O2 Delivery O2 Flow Rate FiO2 09/09/20 07:27 Nasal Cannula 2.0 09/09/20 03:00 98.2 94 18 148/63 (91) 92 98.2 I & O 09/08/20 09/08/20 09/09/20 15:00 23:00 07:00 Intake Total 600 ml 0 ml Output Total 620 ml 1200 ml Balance -20 ml -1200 ml 0 ml Physical Exam General: Alert, Oriented X3, Cooperative Heart: Regular rate, Normal S1, Normal S2 Lungs: Clear Abdomen: Normal bowel sounds, Soft Extremities: No clubbing, No cyanosis Skin: No rashes, No breakdown Comment Review of Relevant I have reviewed the following items pat (where applicable) has been applied. Justifications for Admission Other Justification TIBMO FRY MD Sep 09, 2020 08:03
[2020-09-09] MEDS: NICOTINE 21MG PATCH. TD SCH (08:41)
--- NOTE | 2020-09-09 09:47 | PDOC ---
PULMONARY PROGRESS NOTES DATE: 09/09/20 TIME: 09:45 Subjective no soa Chest tube clamped overnight no pneumothorax on today's chest x-ray Vitals Vital Signs Date Time Temp Pulse Resp B/P (MAP) Pulse Ox O2 Delivery O2 Flow Rate FiO2 09/09/20 07:27 Nasal Cannula 2.0 09/09/20 07:00 97.6 77 18 136/65 (88) 94 97.6 General: Alert, No acute distress Lungs: Clear Cardiovascular: S1 Abdomen: Soft Neuro Exam: Alert Extremities: No Edema Skin: Warm Medications Active Scripts Medications Dose Route/Sig Max Daily Dose Days Date Category Pantoprazole Sodium (Pantoprazole Sodium) 40 Mg Tablet.dr 40 Mg PO DAILYAC 09/06/20 Reported Trelegy Ellipta 100-62.5-25 (Fluticasone/Umeclidin/Vilanter) 1 Each Blst.w.dev 1 Each IH BID 09/06/20 Reported Proair Hfa Inhaler (Albuterol Sulfate) 8.5 Gm Hfa.aer.ad 2 Puff IH PRN Q4-6HRS PRN 21 09/06/20 Reported Impression . 1. The patient with large 8 cm smooth mass in the right lower lobe and a small 8 mm left upper lobe nodule. PET scan was negative. He did have 15-pound weight loss over the past year and a half. It could be malignant; however, the possibility of lesion such as a neuroma or Hamartoma would also be a consideration. 2. Pneumothorax, status post biopsy. 3. Underlying suspected severe chronic obstructive pulmonary disease with upper lobe emphysema on the CT chest. Plan . RECOMMENDATIONS: 1. Chest x-ray post clamping reviewed. No evidence of pneumothorax. He has bullous lung disease. Chest tube is removed. 2. bronchodilators. 3. Preliminary biopsy results discussed with the pathologist. 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 4. The patient to follow up with Dr. Aquino in the office post discharge. Okay with discharge today. Discussed with BINU Pena MD Sep 09, 2020 09:47
[2020-09-09 11:00] VITALS: BP 138/75
[2020-09-09] MEDS ORDERED: ALBU0.63 NEB (12:12)
--- NOTE | 2020-09-09 12:16 | PDOC3 ---
Discharge Summary Visit Information Date of Admission: Sep 06, 2020 Date of Discharge: Sep 09, 2020 Admitting Diagnosis: Right pneumothorax Final Diagnosis Hypoxic respiratory failure, pneumothorax Brief Hospital Course Allergies Allergies Coded Allergies Type Severity Reaction Last Updated Verified No Known Drug Allergies 09/06/20 No Vital Signs Vital Signs Date Time Temp Pulse Resp B/P (MAP) Pulse Ox O2 Delivery O2 Flow Rate FiO2 09/09/20 11:31 93 Room Air 09/09/20 11:00 97.6 94 18 138/75 (96) 97.6 09/09/20 08:00 2.0 Brief Hospital Course Mr Cota is a 74-year-old male [employer] with PMHx emphysema/COPD with 50+ pack year smoking history admitted on 09/06/2020 for management after biopsy of 8cm right lung mass with subsequent pneumothorax requiring chest tube placement. 09/07: Afebrile. No airleak. Chest radiograph looks improved. He is asking for nicotine patch. Tolerating nebulizers well. Pain is minimal. 09/08: Afebrile. No airleak. In the visit after his nebulizer treatment this morning 10 minutes afterwards. He said it tasted differently felt his heart racing and could not catch his breath. This is since resolved. He is an additional 70cc serous drainage from chest tube. Pain is well controlled. Awaiting chest x-ray. Significant O2 desaturations over the last 24 hours required between 2 L nasal cannula to get over 84%. CT chest with 8 cm right lower lobe mass stable no residual pneumothorax, emphysema severe left apical 8 mm mass stable and calcified pleural plaques noted. Afebrile. Chest tube pulled performed today. When walking in the room with him his O2 saturations remain 94% at 96%. He is feeling much better after nebulizer treatment. He is asked for prescription for home nebulizer kit and albuterol nebulizer for emergencies. Pain is well controlled he like to control it at home with Tylenol. He will follow up with pulmonology post discharge Problem list: Acute hypoxic respiratory failure - due to PTX, COPD exacerbation. Pulm following. Resolved after nebs and CT pulled Right pneumothorax - no obvious air leak. Repeat CXR negative Right lower lobe lung mass - large 8 cm right lower lobe lung mass with smooth margins and 8 mm left upper lobe nodule COPD - Emphysematous on trelegy inhaler at home. Will replace with duonebs and pulmicort nebs GERD - on PPI Unintentional weight loss - 15-pound weight loss over the past year and a half. Could be COPD cachexia, though malignancy is a possible concern as well. Plan: Preliminary biopsy results discussed with the pathologist. 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 The patient to follow up with Dr. Aquino in the office post discharge. Haim Mace, and [facility] [address] [place] [address] Discharge Information Condition at Discharge: Improved Follow Up: Weeks Disposition/Orders: D/C to Home Scheduled Albuterol Sulfate (Albuterol Sulfate Neb Soln) 0.63 Mg/3 Ml Vial.neb, 1 VIAL NEB QID for Emphysema for 30 Days, #150 Ref 11 Prescribed by: ITMBO FRY MD on 09/09/20 1212 Fluticasone/Umeclidin/Vilanter (Trelegy Ellipta 100-62.5-25) 1 Each Blst.w.dev, 1 EACH IH BID for copd, (Reported) Entered as Reported by: AMNA GREGG on 09/06/20749 Last Taken: Unknown Dose on 09/05/20 Last Action: New Order on 09/06/20749 by AMNA GREGG Pantoprazole Sodium (Pantoprazole Sodium ) 40 Mg Tablet.dr, 40 MG PO DAILYAC for GERD, (Reported) Entered as Reported by: AMNA GREGG on 09/06/20749 Last Taken: Unknown Dose on 09/05/20 Last Action: Continued on 09/07/20 0740 by TIMBO FRY MD Scheduled PRN Albuterol Sulfate (Proair Hfa Inhaler) 8.5 Gm Hfa.aer.ad, 2 PUFF IH PRN Q4-6HRS PRN for wheezing for 21 Days, #1 Ref 0 (Reported) Entered as Reported by: AMNA GREGG on 09/06/20749 Last Taken: Unknown Dose on 09/06/20 Last Action: New Order on 09/06/20749 by AMNA GREGG Justicifation of Admission Dx: Justifications for Admission: Justification of Admission Dx: Yes TIMBO FRY MD Sep 09, 2020 12:16
--- NOTE | 2020-09-09 12:38 | NUR ---
Patient discharge home with self care today via wheelchair, accompanied by aid. Patient is stable, IV removed, prescription, and discharge paperwork given to patient. Patient verbalized understand followup and discharge instruction.
== END 2020-09-09 12:51 | disposition home or self-care (01) | DRG 199 ==
LOC: INTRAD 06:33 → 4 NORTH 09:58
PROVIDERS: ADMIT Family Medicine; ATTEND Family Medicine
PROC: 0W9930Z Drainage of Right Pleural Cavity with Drainage Device, Percutaneous Approach (ICD-10-PCS; principal; 2020-09-06)
PROC: 0BBK3ZX Excision of Right Lung, Percutaneous Approach, Diagnostic (ICD-10-PCS; 2020-09-06)
DX: J95.811 Postprocedural pneumothorax (principal); J96.01 Acute respiratory failure with hypoxia; Z68.1 Body mass index [BMI] 19.9 or less, adult; D49.1 Neoplasm of unspecified behavior of respiratory system; R63.4 Abnormal weight loss; J43.9 Emphysema, unspecified; F17.210 Nicotine dependence, cigarettes, uncomplicated; K21.9 Gastro-esophageal reflux disease without esophagitis; Y84.8 Other medical procedures as the cause of abnormal reaction of the patient, or of later complication, without mention of misadventure at the time of the procedure; Z77.090 Contact with and (suspected) exposure to asbestos
CPT/HCPCS: 32408; 32557; 36415; 71045; 71250; 80048; 85025; 85610; 88305; 88341; 88342; 94640; 94760; 99152; 99153; C1892; J1650; J2250; J3010; J3490; G0378; J7613; J7626

== ENCOUNTER → 2021-06-25 | Outpatient (CLI) | payer MEDICARE ==
[~2021-06-25] MED LIST: ALBU0.63 NEB; ALBU2.5V8 IH; FLUT1BLS3 IH; PANT40TA77 PO
--- NOTE | 2021-06-25 17:16 | CARD ---
MR#: [id number] Date of Study: 06/25/2021 Ordering Physician: JJ HODGE, Referring Physician: JJ HODGE, Tech: Lilian Gruber [facility] APPROVED REPORT EXAM: Two-dimensional and M-mode echocardiogram with Doppler and color Doppler. Other Information Quality : FairHR: 88bpm Rhythm : NSRTechnically limited study due to LUNG INTERFERENCE INDICATION COPD Dyspnea Pulmonary Hypertention 2D DIMENSIONS RVDd2.7 (2.9-3.5cm)Left Atrium(2D)2.7 (1.6-4.0cm) IVSd1.0 (0.7-1.1cm)Aortic Root(2D)3.4 (2.0-3.7cm) LVDd4.4 (3.9-5.9cm)LVOT Diameter1.9 (1.8-2.4cm) PWd1.2 (0.7-1.1cm)LVDs3.1 (2.5-4.0cm) FS (%) 28.6 %SV48.3 ml LVEF(%)55.3 (>50%) Aortic Valve AoV Peak Kurt.159.4cm/Alexei Peak GR.10.2mmHg LVOT Peak Kurt.78.5cm/sAVA (VMAX)1.38cm2 Mitral Valve MV E Mplmnwlm11.2cm/sMV DECEL [id number] MV A Wbegiulg39.3cm/sE/A Ratio1.0 Pulmonary Valve PV Peak Vulvhepp090.4cm/s Tricuspid Valve TR P. Dvumvmgw885yu/sRAP [id number] TR Peak Gr.79gqBqJAYB43bzGf LEFT VENTRICLE The left ventricle is normal size. There is mild concentric left ventricular hypertrophy. The left ve ntricular systolic function is normal and the ejection fraction is within normal range.The Ejection F raction is 50-55%. There is normal LV segmental wall motion. Tissue Doppler imaging reveals mild left ventricular diastolic dysfunction. No left ventricle thrombus noted on this study. There is no ventr icular septal defect visualized. There is no left ventricular aneurysm. There is no mass noted in the left ventricle. RIGHT VENTRICLE The right ventricle is normal size. There is normal right ventricular wall thickness. The right ventr icular systolic function is normal. ATRIA The left atrium size is normal. The right atrium size is normal. The interatrial septum is intact wit h no evidence for an atrial septal defect or patent foramen ovale as noted on 2-D or Doppler imaging. AORTIC VALVE The aortic valve is mildly calcified. No aortic regurgitation is present. There is no aortic valvular stenosis. There is no aortic valvular vegetation. MITRAL VALVE The mitral valve is normal in structure and function. There is no evidence of mitral valve prolapse. There is no mitral valve stenosis. There is no mitral valve regurgitation noted. TRICUSPID VALVE The tricuspid valve is normal in structure and function. Doppler and Color Flow revealed mild tricusp id regurgitation. The pulmonary artery systolic pressure is estimated at 30-40 mmHg. There is no tric uspid valve prolapse or vegetation. There is no tricuspid valve stenosis. PULMONIC VALVE The pulmonic valve is not well visualized. There is no pulmonic valvular regurgitation. There is no p ulmonic valvular stenosis. GREAT VESSELS The aortic root is normal in size. The ascending aorta is not well seen. The IVC is normal in size an d collapses >50% with inspiration. PERICARDIAL EFFUSION There is no pleural effusion. There is no evidence of significant pericardial effusion. Critical Notification Critical Value: No <Conclusion> The left ventricular systolic function is normal and the ejection fraction is within normal range.The Ejection Fraction is 50-55%. There is normal LV segmental wall motion. Signed by : Pawan Toledo, Electronically Approved : 06/25/2021 17:16:09
== END ==
LOC: ECHO 07:45
PROVIDERS: ATTEND Family Medicine
DX: I08.2 Rheumatic disorders of both aortic and tricuspid valves (principal); I27.23 Pulmonary hypertension due to lung diseases and hypoxia; J44.9 Chronic obstructive pulmonary disease, unspecified; R06.00 Dyspnea, unspecified
CPT/HCPCS: 93306; C8929